=== PATIENT | female | born 1950 | race Caucasian/White ===

== ENCOUNTER → 2016-12-08 | Outpatient (CLI) | payer MEDICARE, BC ==
[~2016-12-08] MED LIST: IBUP200C11; NAPR-638; VALA500T32
--- NOTE | 2016-12-08 13:24 | RADRPT ---
PROCEDURE: XR Knee. CLINICAL INDICATION: Left knee pain. TECHNIQUE: 4 views of the left knee were obtained. The images reviewed on a PACS workstation. COMPARISON: None. FINDINGS: The bones appear intact, with no evidence of fracture, erosion, demineralization, or dislocation. T he alignment of the femorotibial and patellofemoral joints appears normal. No joint space narrowing is seen. No evidence of a joint effusion is seen. No soft tissue swelling is present. IMPRESSION: Unremarkable examination of the left knee. RPTAT: [facility] Physician Ksenia Date Time Electronically viewed and signed by Physician Ksenia on 12/08/2016 13:24 /
== END | disposition home or self-care (01) ==
LOC: HKI 10:11
PROVIDERS: ATTEND Orthopaedic Surgery
DX: M25.552 Pain in left hip (principal); M17.12 Unilateral primary osteoarthritis, left knee
CPT/HCPCS: 20610; 73564; G0463; J1030